=== PATIENT | female | born 1985 | race Caucasian/White ===

== ENCOUNTER → 2024-12-16 13:28 | Outpatient (REF) | payer OTHER, SELFPAY | LOC: HWRAD 13:28 | PROVIDERS: ATTENDING PHYSICIAN Obstetrics & Gynecology Gynecology; FAMILY PHYSICIAN Internal Medicine | DX: R10.2 Pelvic and perineal pain (principal) | CPT/HCPCS: 76830; 76856 ==

== ENCOUNTER → 2025-07-09 10:09 | Outpatient (REF) | payer OTHER, SELFPAY | LOC: HWRAD 10:09 | PROVIDERS: ATTENDING PHYSICIAN Nurse Practitioner Adult Health | DX: R10.11 Right upper quadrant pain (principal) | CPT/HCPCS: 76700 ==